=== PATIENT | female | born 1980 | race Two or more races ===

== ENCOUNTER 2016-09-20 07:56 | Emergency (ER) | payer SELFPAY ==
[~2016-09-20] VITALS: Ht 160 cm; Wt 69.8 kg
[2016-09-20] MEDS ORDERED: DOXEPIN HCL10 MG PO (08:23)
[2016-09-20] MEDS ORDERED: AMITRIPTYLINE H10 MG PO (08:24)
[2016-09-20] MEDS ORDERED: MELATONIN5 M3 PO (08:25)
[2016-09-20] MEDS ORDERED: TRAZODONE HCL50 MG PO (08:25)
[2016-09-20] MEDS ORDERED: MOTRIN PM CAPL1 EAC1 PO (08:26)
[2016-09-20 08:59] VITALS: BP 123/85
== END 2016-09-20 09:00 | disposition home or self-care (01) ==
LOC: EME 07:56
DX: G47.00 Insomnia, unspecified (principal); E78.5 Hyperlipidemia, unspecified; I10 Essential (primary) hypertension
CPT/HCPCS: 99281; 99284